=== PATIENT | male | born 1955 | race Caucasian/White ===

== ENCOUNTER 2020-03-06 23:45 | Observation (INO) | payer OTHER ==
--- OUTSIDE RECORDS SUMMARY | 2020-03-06 23:47 | XMS REPORT | Continuity of Care Document ---
:1955 Author Organization [facility] t Address [address] [place] [address] [address]. [address] [place] [address] Care Team Providers Name Role Phone Unavailable Unavailable Unavailable Problems This patient has no known problems. Allergies, Adverse Reactions, Alerts This patient has no known allergies or adverse reactions. Medications This patient has no known medications. Procedures This patient has no known procedures. Encounters Start End Encounter Admission Attending Care Care Encounter Source Date/Time Date/Time Type Type Clinicians Facility Department ID 2019-05-20 2019-05-20 Outpatient [facility] CAR [facility] [facility] 12:20:00 12:20:00 2019-05-09 2019-05-09 Emergency E [facility] [id number] [facility] 16:52:00 16:52:00 Results This patient has no known results.
[2020-03-07 00:37] LABS: Protime INR 0.93
[2020-03-07 00:38] LABS: Absolute Lymphocytes (CBC) 2.2 K/uL (0.7-4.9); Basophils % 0.6 % (0-1.3); Hematocrit 40.8 % (39.6-49.0); Lymphocytes % 31.9 % (15.3-44.8); MPV 10.3 fL (7.6-11.3); RBC Red Blood Cell Count 4.57 M/uL (4.33-5.43)
[2020-03-07 01:04] LABS: ALT/SGPT 36 U/L (12-78); AST/SGOT 30 U/L (15-37); Albumin 3.7 g/dL (3.4-5.0); Alkaline Phosphatase 49 U/L (45-117); BUN Blood Urea Nitrogen 25 mg/dL (7-18); Bicarbonate 27 mmol/L (21-32); Bilirubin Direct < 0.1 mg/dL (0-0.2); Bilirubin Total 0.3 mg/dL (0.2-1.0); Glucose Level 132 mg/dL (74-106); Magnesium 2.7 mg/dL (1.8-2.4); NT PRO-BNP 426 pg/mL (<125); Potassium 3.3 mmol/L (3.5-5.1); Sodium Level 143 mmol/L (136-145); Troponin (Emerg Dept Use Only) 0.02 ng/mL (0.0-0.045)
--- NOTE | 2020-03-07 01:57 | ER ---
Nurse's Notes [facility] Name: Shon Recinos Jr Age: 65 yrs Sex: Male : 1955 Arrival Date: 03/06/2020 Time: 23:46 Bed 8 Private MD: Diagnosis: Syncope and collapse Presentation: 03/06 23:49 Chief complaint: EMS states: Pt felt some indigestion went to walk it off, had a wh syncopal episode, fell and hit the night stand. Pt unsure if he lost consciousness states he was aware of everything was just disoriented after that for a short time. Pt denies using blood thinners. Coronavirus screen: Client denies travel out of the [place] in the last 14 days. At this time, the client does not indicate any symptoms associated with coronavirus-19. Ebola Screen: Patient negative for fever greater than or equal to 101.5 degrees Fahrenheit, and additional compatible Ebola Virus Disease symptoms Patient denies exposure to infectious person. Initial Sepsis Screen: Does the patient meet any 2 criteria? No. Patient's initial sepsis screen is negative. Does the patient have a suspected source of infection? No. Patient's initial sepsis screen is negative. Risk Assessment: Do you want to hurt yourself or someone else? Patient reports no desire to harm self or others. Onset of symptoms was March 06, 2020. Care prior to arrival: IV initiated. 18 GA, in the left antecubital area, Glucose check: 139. 23:49 Method Of Arrival: EMS: [facility] 23:49 Acuity: SUSEI 3 Historical: - Allergies: 23:55 No Known Allergies; - Home Meds: 03/07 00:06 olmesartan oral oral 1 tab once daily [Active]; Flomax 0.4 mg Oral cp24 1 cap once wh daily [Active]; isosorbide mononitrate 30 mg Oral Tb24 1 tab twice a day [Active]; prednisone 5 mg Oral tab 1 tab 2 times per day [Active]; abiraterone oral oral 4 tabs once daily [Active]; rosuvastatin 20 mg oral tab 1 tab once daily [Active]; Dexilant 30 mg oral CpDB 1 cap once daily [Active]; Trelstar Injection [Active]; Zometa Infusion [Active]; - PMHx: 03/06 23:55 Hypertension; [place]; Prostate Ca; 03/07 00:06 GERD; - PSHx: 03/06 23:55 Bypass; - Immunization history:: Adult Immunizations not up to date. - Social history:: Smoking status: Patient/guardian denies using. Screenin:56 Abuse screen: Denies threats or abuse. Denies injuries from another. Nutritional screening: No deficits noted. Tuberculosis screening: No symptoms or risk factors identified. Fall Risk Fall in past 12 months (25 points). Assessment: 23:59 General: Appears in no apparent distress. Behavior is calm, cooperative, appropriate for age. Pain: Denies pain. Neuro: Level of Consciousness is awake, alert, obeys commands, Oriented to person, place, time, situation, Appropriate for age Fluorescent Lighting Model Maker are equal bilaterally Moves all extremities. Gait is steady, Speech is normal, Facial symmetry appears normal, Pupils are PERRLA, Intact Reports a syncopal episode. Cardiovascular: Heart tones S1 S2 Rhythm is sinus rhythm with unifocal PVCs. Respiratory: Airway is patent Respiratory effort is even, unlabored, Respiratory pattern is regular, symmetrical, Breath sounds are clear bilaterally. GI: Abdomen is flat, non-distended. : No signs and/or symptoms were reported regarding the genitourinary system. EENT: No signs and/or symptoms were reported regarding the EENT system. Derm: Bruising that is left side of face. Musculoskeletal: Circulation, motion, and sensation intact. 03/07 01:00 Reassessment: Patient appears in no apparent distress at this time. No changes from previously documented assessment. Patient and/or family updated on plan of care and expected duration. Pain level reassessed. Patient is alert, oriented x 3, equal unlabored respirations, skin warm/dry/pink. 02:00 Reassessment: Patient appears in no apparent distress at this time. Patient and/or family updated on plan of care and expected duration. Pain level reassessed. Patient is alert, oriented x 3, equal unlabored respirations, skin warm/dry/pink. Provider at bedside explaining POC need for admit. Vital Signs: 03/06 23:49 BP 168 / 89; Pulse 79; Resp 18; Temp 98.2; Pulse Ox 97% ; Weight 111.58 kg; Height 6 wh ft. 0 in. (182.88 cm); 03/07 02:15 BP 164 / 85 Supine; Pulse 73; oe 02:17 BP 168 / 84 Sitting; Pulse 73; oe 02:25 BP 158 / 93 Standing; Pulse 70; oe 03/06 23:49 Body Mass Index 33.36 (111.58 kg, 182.88 cm) NIH Stroke Scale Scores: 03/06 23:49 NIHSS Score: 0 ED Course: 23:46 Patient arrived in ED. cl3 23:49 Rayne Dale is Primary Nurse. 23:52 Triage completed. 03/07 00:00 Arm band placed on right wrist. 00:00 Patient has correct armband on for positive identification. Placed in gown. Bed in low wh position. Call light in reach. Side rails up X 1. pricing consultant on. Pulse ox on. NIBP on. 00:06 Ladarius Newell NP is PHCP. pm1 00:06 Carlos Rodriguez MD is Attending Physician. pm1 00:10 Maintain EMS IV. Dressing intact. Good blood return noted. Site clean \T\ dry. Gauge \T\ wh site: 18g LAC . 00:32 XRAY Chest (1 view) In Process Unspecified. EDMS 00:32 CT Head Brain wo Cont In Process Unspecified. EDMS 01:57 Zoran Olivera is Hospitalizing Provider. tw4 02:50 No provider procedures requiring assistance completed. Patient admitted, IV remains in place. Administered Medications: 01:57 Drug: Tetanus-Diphtheria Toxoid Adult 0.5 ml {Manager Requirements: [employer]. Exp: 07/16/2021. Lot #: [id number]. } Route: IM; Site: right deltoid; 02:49 Follow up: Response: No adverse reaction Point of Care Testing: Blood Glucose: 00:00 Blood Glucose: 128 mg/dL; Ranges: Outcome: 01:57 Decision to Hospitalize by Provider. tw4 02:51 Admitted to Med/surg accompanied by tech, family with patient, via wheelchair, room wh 216, with chart, Report called to Yevgeniy Duuqe RN 02:51 Condition: stable 02:51 Instructed on the need for admit. 03:00 Patient left the ED. rv NIH Stroke Scale - NIH Stroke Score Date: 03/06/2020 Time: 23:49 Total Score = 0 1a. Level of Consciousness (LOC) - 0(Alert) 1b. Level of Consciousness (LOC) (Year \T\ Age) - 0(Both) 1c. LOC Commands (Open \T\ Closes Eyes/Copper Etcher) - 0(Both) 2. Best Gaze (Lateral Gaze Paresis) - 0(Normal) 3. Visual Field Loss - 0(No visual loss) 4. Facial Palsy - 0(Normal) 5a. Left Arm: Motor (10-second hold) - 0(No drift) 5b. Right Arm: Motor (10-second hold) - 0(No drift) 6a. Left Leg: Motor (5-second hold - always test supine) - 0(No drift) 6b. Right Leg: Motor (5-second hold - always test supine) - 0(No drift) 7. Limb Ataxia (finger/nose \T\ heel/cheatham - test with eyes open) - 0(Absent) 8. Sensory Loss (pinprick arms/legs/face) - 0(Normal) 9. Best Language: Aphasia (description/naming/reading) - 0(No aphasia) 10. Dysarthria (speech clarity - read or repeat words) - 0(Normal) 11. Extinction and Inattention (visual/tactile/auditory/spatial/personal) - 0(No abnormality) Initials: Signatures: Dispatcher [employer] EDMS Ladarius Newell, GARNETTER GARNETTER pm1 Fito Haney Winsy Carlos Rodriguez MD MD tw4 John Jules RN RN Tutu Sheehan cl3 Corrections: (The following items were deleted from the chart) 03/06 23:58 23:58 General: Appears [facility] 03/07 00:07 03/06 23:59 Cardiovascular: Heart tones S1 S2 Rhythm is sinus rhythm [facility] 03/07 00:14 03/06 23:59 Neuro: Level of Consciousness is awake, alert, obeys commands, wh Oriented to person, place, time, situation, Appropriate for age Fluorescent Lighting Model Maker are equal bilaterally Moves all extremities. Speech is normal, Facial symmetry appears normal, Pupils are PERRLA, Intact Reports a syncopal episode
--- NOTE | 2020-03-07 01:58 | EDPHYS ---
Physician Documentation [facility] Name: Shon Recinos Jr Age: 65 yrs Sex: Male : 1955 Arrival Date: 03/06/2020 Time: 23:46 Bed 8 Private MD: ED Physician Carlos Rodriguez HPI: 03/07 00:13 This 65 yrs old Male presents to ER via EMS with complaints of Syncope. tw4 00:13 The patient has experienced syncope, became unresponsive, collapsed. Onset: The tw4 symptoms/episode began/occurred just prior to arrival, today. Duration: This was a single episode. Associated injury: The patient did not suffer any apparent associated injury. The patient has not experienced similar symptoms in the past. Historical: - Allergies: 03/06 23:55 No Known Allergies; - Home Meds: 03/07 00:06 olmesartan oral oral 1 tab once daily [Active]; Flomax 0.4 mg Oral cp24 1 cap once wh daily [Active]; isosorbide mononitrate 30 mg Oral Tb24 1 tab twice a day [Active]; prednisone 5 mg Oral tab 1 tab 2 times per day [Active]; abiraterone oral oral 4 tabs once daily [Active]; rosuvastatin 20 mg oral tab 1 tab once daily [Active]; Dexilant 30 mg oral CpDB 1 cap once daily [Active]; Trelstar Injection [Active]; Zometa Infusion [Active]; - PMHx: 03/06 23:55 Hypertension; [place]; Prostate Ca; 03/07 00:06 GERD; - PSHx: 03/06 23:55 Bypass; - Immunization history:: Adult Immunizations not up to date. - Social history:: Smoking status: Patient/guardian denies using. ROS: 03/07 00:13 Constitutional: Negative for fever, chills, and weight loss, Cardiovascular: Negative tw4 for chest pain, palpitations, and edema, Respiratory: Negative for shortness of breath, cough, wheezing, and pleuritic chest pain, Abdomen/GI: Negative for abdominal pain, nausea, vomiting, diarrhea, and constipation, Back: Negative for injury and pain, MS/Extremity: Negative for injury and deformity, Skin: Negative for injury, rash, and discoloration. Neuro: Positive for syncope. Exam: 00:13 Constitutional: This is a well developed, well nourished patient who is awake, alert, tw4 and in no acute distress. Chest/axilla: Normal chest wall appearance and motion. Nontender with no deformity. No lesions are appreciated. Cardiovascular: Regular rate and rhythm with a normal S1 and S2. No gallops, murmurs, or rubs. Normal PMI, no JVD. No pulse deficits. Respiratory: Lungs have equal breath sounds bilaterally, clear to auscultation and percussion. No rales, rhonchi or wheezes noted. No increased work of breathing, no retractions or nasal flaring. Abdomen/GI: Soft, non-tender, with normal bowel sounds. No distension or tympany. No guarding or rebound. No evidence of tenderness throughout. Back: No spinal tenderness. No costovertebral tenderness. Full range of motion. MS/ Extremity: Pulses equal, no cyanosis. Neurovascular intact. Full, normal range of motion. 00:13 Neuro: Awake and alert, GCS 15, oriented to person, place, time, and situation. Cranial nerves II-XII grossly intact. Motor strength 5/5 in all extremities. Sensory grossly intact. Cerebellar exam normal. Normal gait. 00:13 Head/face: Noted is contusion, that is deep, of the forehead and left ear. Vital Signs: 03/06 23:49 BP 168 / 89; Pulse 79; Resp 18; Temp 98.2; Pulse Ox 97% ; Weight 111.58 kg; Height 6 wh ft. 0 in. (182.88 cm); 03/07 02:15 BP 164 / 85 Supine; Pulse 73; oe 02:17 BP 168 / 84 Sitting; Pulse 73; oe 02:25 BP 158 / 93 Standing; Pulse 70; oe 03/06 23:49 Body Mass Index 33.36 (111.58 kg, 182.88 cm) NIH Stroke Scale Scores: 03/06 23:49 NIHSS Score: 0 MDM: 03/07 00:11 Patient medically screened. tw4 03:45 Differential Diagnosis: GI bleed, pseudo seizure, seizure, sepsis. Differential tw4 Diagnosis: aortic aneurysm, cardiac arrhythmia, cerebrovascular accident, emotional response, idiopathic syncope, vasovagal episode. Data reviewed: vital signs, nurses notes. Data reviewed: lab test result(s), CBC, electrolytes, hepatic panel, radiologic studies, CT scan. Data interpreted: Pulse oximetry:. Data interpreted: Pulse oximetry: Interpretation: normal. Test interpretation: by ED physician or midlevel provider: ECG, plain radiologic studies. Counseling: I had a detailed discussion with the patient and/or guardian regarding: the historical points, exam findings, and any diagnostic results supporting the discharge/admit diagnosis, the presence of at least one elevated blood pressure reading (>120/80) during this emergency department visit. Physician consultation: Zoran Olivera regarding admission, to the telemetry unit. patient's condition, and will see patient in inpatient room. Special discussion:. 03/07 00:03 Order name: Glucose, Ancillary Testing; Complete Time: 00:48 EDMS 03/07 00:05 Order name: Glucose, Ancillary Testing EDUT 03/07 00:07 Order name: Basic Metabolic Panel; Complete Time: 01:12 pm1 03/07 00:07 Order name: CBC with Diff; Complete Time: 00:48 pm1 03/07 00:07 Order name: LFT's; Complete Time: 01:32 pm1 03/07 00:07 Order name: Magnesium; Complete Time: 01:12 pm1 03/07 00:07 Order name: NT PRO-BNP; Complete Time: 01:12 pm1 03/07 00:07 Order name: PT-INR; Complete Time: 00:48 pm1 03/07 00:07 Order name: Troponin (emerg Dept Use Only); Complete Time: 01:32 pm1 03/07 00:07 Order name: XRAY Chest (1 view) pm1 03/07 00:12 Order name: CT Head Brain wo Cont tw4 03/07 02:33 Order name: COVID-19 wh 03/07 02:56 Order name: CORONAVIRUS EDUT 03/07 00:07 Order name: EKG; Complete Time: 00:08 pm1 03/07 00:07 Order name: Cardiac monitoring; Complete Time: 00:08 pm1 03/07 00:07 Order name: EKG - Nurse/Tech; Complete Time: 00:08 pm1 03/07 00:07 Order name: IV Saline Lock; Complete Time: 00:08 pm1 03/07 00:07 Order name: Labs collected and sent; Complete Time: 00:08 pm1 03/07 00:07 Order name: O2 Per Protocol; Complete Time: 00:09 pm1 03/07 00:07 Order name: O2 Sat Monitoring; Complete Time: 00:09 pm1 03/07 01:57 Order name: Orthostatics; Complete Time: 02:28 tw4 EC:13 Rate is 69 beats/min. Rhythm is regular with Occasional PVCs. QRS [place] is Normal. SD tw4 interval is normal. QRS interval is normal. QT interval is normal. No Q waves. T waves are Inverted in leads V4, V5, V6. No ST changes noted. Clinical impression: NSR w/ Non-specific ST/T Changes. Interpreted by me. Reviewed by me. Administered Medications: :57 Drug: Tetanus-Diphtheria Toxoid Adult 0.5 ml {Clinical Data Manager: [employer]. Exp: 07/16/2021. Lot #: [id number]. } Route: IM; Site: right deltoid; 02:49 Follow up: Response: No adverse reaction wh Point of Care Testing: Blood Glucose: 00:00 Blood Glucose: 128 mg/dL; Ranges: Critical Glucose Levels:Adult <50 mg/dl or >400 mg/dl <40 mg/dl or >180 mg/dl Disposition: 03/07/20 01:57 Hospitalization ordered by Zoran Olivera for Observation. Preliminary diagnosis is Syncope and collapse. - Bed requested for Telemetry/MedSurg (observation). - Status is Observation. rv - Condition is Stable. - Problem is new. - Symptoms have improved. NIH Stroke Scale - NIH Stroke Score Date: 03/06/2020 Time: 23:49 Total Score = 0 1a. Level of Consciousness (LOC) - 0(Alert) 1b. Level of Consciousness (LOC) (Year \T\ Age) - 0(Both) 1c. LOC Commands (Open \T\ Closes Eyes/Violin Tutor) - 0(Both) 2. Best Gaze (Lateral Gaze Paresis) - 0(Normal) 3. Visual Field Loss - 0(No visual loss) 4. Facial Palsy - 0(Normal) 5a. Left Arm: Motor (10-second hold) - 0(No drift) 5b. Right Arm: Motor (10-second hold) - 0(No drift) 6a. Left Leg: Motor (5-second hold - always test supine) - 0(No drift) 6b. Right Leg: Motor (5-second hold - always test supine) - 0(No drift) 7. Limb Ataxia (finger/nose \T\ heel/cheatham - test with eyes open) - 0(Absent) 8. Sensory Loss (pinprick arms/legs/face) - 0(Normal) 9. Best Language: Aphasia (description/naming/reading) - 0(No aphasia) 10. Dysarthria (speech clarity - read or repeat words) - 0(Normal) 11. Extinction and Inattention (visual/tactile/auditory/spatial/personal) - 0(No abnormality) Initials: Signatures: Dispatcher MedHost EDMS Don Blanco, CORRECTIONAL MAINTENANCE TECHNICIAN-C CORRECTIONAL MAINTENANCE TECHNICIAN-Cla1 Madeline Guajardo, RN RN cg Ladarius Newell, MATTRESS MAKER MATTRESS MAKER pm1 Rayne Dale Terrence, MD MD tw4 John Jules RN RN rv Corrections: (The following items were deleted from the chart) 02:39 01:57 Hospitalization Ordered by Zoran Olivera for Observation. Preliminary cg diagnosis is Syncope and collapse. Bed requested for Telemetry/MedSurg (observation). Status is Observation. Condition is Stable. Problem is new. Symptoms have improved. tw4 03:00 02:39 03/07/2020 01:57 Hospitalization Ordered by Zoran Olivera for rv Observation. Preliminary diagnosis is Syncope and collapse. Bed requested for Telemetry/MedSurg (observation). Status is Observation. Condition is Stable. Problem is new. Symptoms have improved.
[2020-03-07] MEDS ORDERED: TETANUS & DIPHTHERIA TOX,ADULT 0.5 ML VIAL ONE (02:05)
--- NOTE | 2020-03-07 02:40 | P.HP ---
Certification for Inpatient Patient admitted to: Observation With expected LOS: <2 Midnights Patient will require the following post-hospital care: None Practitioner: I am a practitioner with admitting privileges, knowledge of patient current condition, hospital course, and medical plan of care. Services: Services provided to patient in accordance with Admission requirements found in Title 42 Section 412.3 of the Code of Federal Regulations <Don Blanco - Last Filed: 03/07/20 02:32> Patient History Date of Service: 03/07/20 Primary Care Provider: Dr. Stewart Reason for admission: Chest pain/Syncope History of Present Illness: 65 year old male with history of coronary artery disease status post 2 vessel CABG, prostate cancer with mets to bones, hypertension, hyperlipidemia, GERD presents emergency department for syncope. Patient reports that he was lying down in bed and got up to urinate, on his way to he is feeling some Bloating in his abdomen that extended up to his chest. After urinating patient was ambulating back to his bed and began to have a tightness in his chest. Patient describes the tightness in his chest as similar to whenever he had a nuclear stress test. Patient soon after had an episode of syncope and collapse and was down for a number of mins. Patient reports that even after recovering you still having some chest tightness, retrosternal, nonradiating, no associated symptoms, not exacerbated or relieved by anything he can tell. 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 Patient was seen sometime around May of this year for similar symptoms and had angiography without stent placement at that time. Patient also believes that he had stress test but is not certain. Initial troponin negative, EKG without acute findings, chest x-ray negative. Patient did hit his head during his fall, does have some mild abrasions but CT head brain negative for any acute findings. ED provider wishes to admit patient for further evaluation and management. When I saw the patient in the emergency department is awake, alert, oriented x3. Patient in normal sinus rhythm rate 75, blood pressure 150/70, patient reports still some mild substernal chest tightness. Patient will be admitted for further evaluation and management. - Past Medical/Surgical History Diabetic: No -: Prostate cancer with mets to bones on chemotherapy -: CAD status post 2 vessel CABG 2009 -: Hypertension -: Hyperlipidemia -: GERD -: Double Bypass -: Bilateral cataract surgery Psychosocial/ Personal History: Patient lives at home with his - Family History Mother -: Cancer Notes: Pancreatic cancer - Social History Smoking Status: Former smoker Alcohol use: Yes CD- Drugs: No Caffeine use: Yes Place of Residence: Home <Don Blanco - Last Filed: 03/07/20 02:32> Date of Service: 03/07/20 <teddy michel - Last Filed: 03/07/20 17:03> Allergies No Known Allergies Allergy (Verified 03/07/20 03:55) Home Medications: Abiraterone Acetate 4 tab PO DAILY 03/07/20 Clopidogrel Bisulfate [Plavix] 75 mg PO DAILY #30 tablet 03/07/20 Dexlansoprazole [Dexilant] 1 cap PO SEECOM 03/07/20 Isosorbide Dinitrate 1 tab PO DAILY 03/07/20 Nitroglycerin [Nitrostat*] 0.4 mg SL UD PRN #20 tab 03/07/20 Olmesartan Medoxomil 1 tab PO DAILY 03/07/20 Rosuvastatin Calcium 1 tab PO DAILY 03/07/20 predniSONE [Prednisone] 5 mg PO DAILY 03/07/20 Review of Systems Unremarkable Cardiovascular: Chest Pain, Other (Syncope), As per HPI <Don Blanco - Last Filed: 03/07/20 02:32> Physical Examination - Physical Exam General: Alert, In no apparent distress HEENT: Atraumatic, PERRLA, Mucous membr. moist/pink Neck: Supple, 2+ carotid pulse no bruit, No LAD Respiratory: Clear to auscultation bilaterally, Normal air movement Cardiovascular: Regular rate/rhythm, Normal S1 S2 Gastrointestinal: Normal bowel sounds, No tenderness Musculoskeletal: No tenderness Integumentary: No rashes Neurological: Normal speech, Normal strength at 5/5 x4 extr, Normal tone, Normal affect - Studies Laboratory Data (last 24 hrs) 03/07/20 00:05: PT 11.0, INR 0.93 03/07/20 00:05: WBC 7.0, Hgb 13.8, Hct 40.8, Plt Count 156 03/07/20 00:05: Sodium 143, Potassium 3.3 L, BUN 25 H, Creatinine 1.27, Glucose 132 H, Magnesium 2.7 H, Total Bilirubin 0.3, AST 30, ALT 36, Alkaline Phosphatase 49 <Don Blanco - Last Filed: 03/07/20 02:32> - Studies Laboratory Data (last 24 hrs) 03/07/20 00:05: PT 11.0, INR 0.93 03/07/20 00:05: WBC 7.0, Hgb 13.8, Hct 40.8, Plt Count 156 03/07/20 00:05: Sodium 143, Potassium 3.3 L, BUN 25 H, Creatinine 1.27, Glucose 132 H, Magnesium 2.7 H, Total Bilirubin 0.3, AST 30, ALT 36, Alkaline Phosphatase 49 <teddy michel - Last Filed: 03/07/20 17:03> Assessment and Plan - Plan Assessment Chest pain with syncope and collapse-history of CAD with bypass Prostate cancer with mets to bones Hypertension Hyperlipidemia GERD Plan Chest pain with syncope and collapse-history of CAD with 2 vessel bypass: Trend troponins, monitor on telemetry. Cardiology consult in place. Daily aspirin, statin. DVT prophylaxis Lovenox 40 mg subcutaneous once daily. Echocardiogram ordered. Appreciate further input from cardiology. Prostate cancer with mets to bones: Recent PET and bone scan with oncology shows improvement. Appears stable this time, continue with outpatient management. Hypertension: Continue home medications. Adjust as necessary Hyperlipidemia: Continue Crestor GERD: Protonix daily Discharge Plan: Home Plan to discharge in: 24 Hours - Advance Directives Does patient have a Living Will: No Does patient have a Durable POA for Healthcare: No - Code Status/Comfort Care Code Status Assessed: Yes (Full code) Critical Care: No Time Spent Managing Pts Care (In Minutes): 55 <Don Blanco - Last Filed: 03/07/20 02:32> Physician Review: Patient Assessed, Agree with Above Assessment and Plan Physician Review Additional Text: Chest pain. Significant cardiac risk factors. Plan: Continue to trend troponin. Awaiting cardiology input. Echocardiogram. <teddy michel - Last Filed: 03/07/20 17:03>
[2020-03-07] MEDS ORDERED: MORPHINE 2 MG/ML SYR IV PRN (03:11)
[2020-03-07] MEDS ORDERED: NITROGLYCERIN 0.4 MG/TAB SL PRN (03:11)
[2020-03-07] MEDS ORDERED: ONDANSETRON 4 MG/2 ML VIAL IV PRN (03:11)
[2020-03-07] MEDS ORDERED: ACETAMINOPHEN 500 MG TAB PO PRN (03:11)
[2020-03-07] MEDS ORDERED: POTASSIUM 25 MEQ EFFERV TAB PO ONE ×2 (03:42→09:00)
[2020-03-07] MEDS: NA CHLORIDE 0.9% 1,000 ML IV SCH ×2 (03:43→13:11)
[2020-03-07 04:56] VITALS: BMI 33.6
[2020-03-07 06:01] LABS: CKMB Creatine Kinase MB 2.7 ng/mL (0.3-3.6); Thyroid Stimulating Hormone 2.01 uIU/mL (0.360-3.740); Troponin I 0.12 ng/mL (0.0-0.045)
[2020-03-07] MEDS ORDERED: PANTOPRAZOLE 40MG TABLET PO SCH (06:30)
--- NOTE | 2020-03-07 07:50 | RAD REPORT ---
EXAM DESCRIPTION: Chad Single View03/07/2020 12:32 am CLINICAL HISTORY: Hypertension/syncope COMPARISON: 2016 FINDINGS: The lungs appear clear of acute infiltrate. The heart is mildly to moderately enlarged. Postsurgical changes involve the chest Areas of sclerosis are present within the bones compatible with known metastatic disease
[2020-03-07] MEDS ORDERED: POTASSIUM CL SA 10 MEQ TAB PO ONE (08:05)
[2020-03-07 08:21] VITALS: O2SAT 98
[2020-03-07] MEDS ORDERED: ISOSORBIDE MONO 10 MG TAB PO SCH (09:00)
[2020-03-07] MEDS ORDERED: ASPIRIN EC 81 MG TAB PO SCH (09:00)
[2020-03-07] MEDS ORDERED: TAMSULOSIN 0.4 MG SR CAP PO SCH (09:00)
[2020-03-07] MEDS ORDERED: ENOXAPARIN 40 MG/0.4 ML SQ SCH (09:00)
[2020-03-07 09:54] VITALS: TEMP 97
--- NOTE | 2020-03-07 11:21 | P.DS ---
Admission Date: 03/07/20 Discharge Date: 03/07/20 Primary Care Provider: Dr. Stewart Disposition: ROUTINE DISCHARGE Reason for Admission: Chest pain/Syncope Consultations: Cardiology-Dr. Guevara Procedures: None. Brief History of Present Illness: 65-year-old gentleman with a history of coronary artery disease status post CABG, history of prostate cancer with bone metastasis on chemotherapy presented to the emergency department after a syncopal episode at home. Patient reports preceding chest pain prior to the syncopal episode after he used the bathroom in the middle of the night. His initial troponin in the ED was negative. Head CT was negative for acute changes. Patient was hospitalized for further evaluation. Hospital Course: Troponin trended up slightly to 0.12 and then trended down. Troponin trended does not suggest ACS. Patient was asymptomatic during the hospital stay. He mentioned he has been very active and has been walking up to 2 miles without any chest pain. He did several hours of yard work yesterday. Echocardiogram was unremarkable per cardiology. Patient was seen and evaluated by cardiology-Dr. Guevara who recommended event monitor placement as an outpatient. Patient was no orthostatic. Patient deemed clinically stable for discharge per cardiology. Patient is discharged with dual platelet therapy and follow up with Dr. Guevara for arrangement for event monitor placement. Vital Signs/Physical Exam: Temp Pulse Resp BP Pulse Ox 97.0 F 57 17 137/80 97 03/07/20 08:00 03/07/20 08:00 03/07/20 08:00 03/07/20 08:00 03/07/20 08:00 General: Alert, In no apparent distress Neck: Supple, JVD not distended Respiratory: Clear to auscultation bilaterally, Normal air movement Cardiovascular: No edema, Regular rate/rhythm, Normal S1 S2 Integumentary: No rashes Laboratory Data at Discharge: WBC 7.0 K/uL (4.3-10.9) 03/07/20 00:05 Hgb 13.8 g/dL (13.6-17.9) 03/07/20 00:05 Hct 40.8 % (39.6-49.0) 03/07/20 00:05 Plt Count 156 K/uL (152-406) 03/07/20 00:05 PT 11.0 SECONDS (9.5-12.5) 03/07/20 00:05 INR 0.93 03/07/20 00:05 Sodium 143 mmol/L (136-145) 03/07/20 00:05 Potassium 3.9 mmol/L (3.5-5.1) 03/07/20 04:40 BUN 25 mg/dL (7-18) H 03/07/20 00:05 Creatinine 1.27 mg/dL (0.55-1.3) 03/07/20 00:05 Glucose 132 mg/dL (74-106) H 03/07/20 00:05 Magnesium 2.7 mg/dL (1.8-2.4) H 03/07/20 00:05 Total Bilirubin 0.3 mg/dL (0.2-1.0) 03/07/20 00:05 AST 30 U/L (15-37) 03/07/20 00:05 ALT 36 U/L (12-78) 03/07/20 00:05 Alkaline Phosphatase 49 U/L (45-117) 03/07/20 00:05 Troponin I 0.12 ng/mL (0.0-0.045) H 03/07/20 04:40 Triglycerides 64 mg/dL (<150) 03/07/20 04:40 Cholesterol 138 mg/dL (<200) 03/07/20 04:40 HDL Cholesterol 40 mg/dL (40-60) 03/07/20 04:40 Cholesterol/HDL Ratio 3.45 03/07/20 04:40 Home Medications: Abiraterone Acetate 4 tab PO DAILY 03/07/20 Clopidogrel Bisulfate [Plavix] 75 mg PO DAILY #30 tablet 03/07/20 Dexlansoprazole [Dexilant] 1 cap PO SEECOM 03/07/20 Isosorbide Dinitrate 1 tab PO DAILY 03/07/20 Nitroglycerin [Nitrostat*] 0.4 mg SL UD PRN #20 tab 03/07/20 Olmesartan Medoxomil 1 tab PO DAILY 03/07/20 Rosuvastatin Calcium 1 tab PO DAILY 03/07/20 predniSONE [Prednisone] 5 mg PO DAILY 03/07/20 New Medications: Nitroglycerin [Nitrostat*] 0.4 mg SL UD PRN #20 tab PRN Reason: Pain Scale 2-4 (Mild) Clopidogrel Bisulfate [Plavix] 75 mg PO DAILY #30 tablet Diet: AHA Activity: Fall precautions Followup: NONE,NONE [Primary Care Provider] - Hernesto Guevara MD [ACTIVE - CAN ADMIT] - 1-2 Days
[2020-03-07 11:45] LABS: CKMB Creatine Kinase MB 2.1 ng/mL (0.3-3.6); Troponin I 0.06 ng/mL (0.0-0.045)
[2020-03-07 12:57] VITALS: BP 172/81
--- NOTE | 2020-03-07 14:40 | RAD REPORT ---
EXAM DESCRIPTION: CT - Head Brain Wo Cont - 03/07/2020 7:08 am CLINICAL HISTORY: The patient is 65 years old and is Male; SYNCOPE TECHNIQUE: Axial computed tomography images of the head/brain without intravenous contrast. Sagitt al and coronal reformatted images were created and reviewed. This CT exam was performed using one o r more of the following dose reduction techniques: automated exposure control, adjustment of the mA and/or kV according to patient size, and/or use of iterative reconstruction technique. COMPARISON: No relevant prior studies available. FINDINGS: BRAIN: There is diffuse cerebral atrophy present, consistent with this patient's age. The ortega-white matter differentiation is preserved . No hemorrhage. No significant white matter disease . No edema. No extra-axial fluid collections. VENTRICLES: Unremarkable. No ventriculomegaly. BONES/JOINTS: No acute fracture. SOFT TISSUES: Unremarkable. SINUSES: Unremarkable as visualized. No acute sinusitis. MASTOID AIR CELLS: Unremarkable as visualized. No mastoid effusion. ORBITS: Unremarkable as visualized. IMPRESSION: No acute intracranial findings. Electronically signed by: Hyacinth Jon MD 03/07/2020 12:41 AM BALLET PROFESSOR Due to temporary technical issues with the PACS/Fluency reporting system, reports are being signed by the in house radiologists without review as a courtesy to insure prompt reporting. The interpreting radiologist is fully responsible for the content of the report.
--- NOTE | 2020-03-07 16:22 | CON ---
Date of Consultation: 03/07/2020 Reason For Admission: Syncope. History Of Present Illness: Mr. Recinos is a 65-year-old male with history of coronary artery disease status post CABG. The last catheterization was done in May of this year and apparently has an o ccluded graft, patent FINLEY to the LAD. He sees a physician in [place], [place] from a cardiac stand point. He also has a history of hypertension, dyslipidemia, gastroesophageal reflux disease, and hong ign prostatic hypertrophy. While working outside yesterday, he had an episode of sudden syncope. Be fore that, he had some mild chest pain and pressure that he said felt like when he had a stress test in the past. Denies any nausea, vomiting, diaphoresis. He did have some dizziness before this happe ced. He denied PND, orthopnea, pedal edema, or palpitation. Denied any fever or chills or cough. Past Medical History: As stated above. Allergies: NONE. Review of Systems: Negative. Social History: Negative. Family History: Noncontributory. Medications: At home include Dexilant, Imdur, olmesartan, Crestor, Flomax, and prednisone. Physical Examination: Vital Signs: Stable. He is afebrile. HEENT: Negative. Neck: Supple with no bruit. Chest: Clear. Cardiac: Revealed a regular rhythm and rate. No murmurs, gallops, rubs. Abdomen: Benign. Extremities: Revealed no clubbing, cyanosis, or edema. Diagnostic Data: His troponin was 0.12. BNP was 426. His last EKG was unremarkable. Echocardiogra m is within normal limit. Impression And Plan: Syncope, more likely secondary to orthostatic hypotension. I would recommend t he patient continue his olmesartan, Imdur. We will have him to stop the Flomax. His echo is normal. His troponin elevation and BNP elevation are probably secondary to chronic coronary artery disease. I think he should have a 7-day event monitor to rule out ventricular tachycardia or other kind of a rrhythmia that may explain his syncope. I will make arrangements for him to do this as an outpatient as soon as he gets out of the hospital. He will follow up after that with his primary attacher. His other problems including hypertension, dyslipidemia, gastroesophageal reflux disease are stable at this point. The case was discussed with Dr. STACK/SHANNA Voice ID: [id number] Report ID: [id number]
[2020-03-07] MEDS ORDERED: ROSUVASTATIN 10 MG TAB PO SCH (21:00)
--- NOTE | 2020-03-08 07:18 | EKG ---
Test Date: 2020-03-07 Test Time: 00:03:44 Rehabilitation Clerk: RV MEASUREMENT RESULTS: Intervals: Rate: 69 NM: 140 QRSD: 120 QT: 416 QTc: 445 [place]: P: 3 NM: 140 QRS: -26 T: 29 INTERPRETIVE STATEMENTS: Sinus rhythm with occasional premature ventricular complexes Nonspecific intraventricular conduction delay Nonspecific T wave abnormality Abnormal ECG Compared to ECG 01/02/2013 02:03:51 Ventricular premature complex(es) now present T-wave abnormality now present Sinus bradycardia no longer present Electronically Signed On 03-08-20 07:16:17 REDRAWER by Hernesto Guevara
--- NOTE | 2020-03-08 08:11 | ECHO ---
HEIGHT: 6 ft 0 in WEIGHT: 248 lb 1 oz DATE OF STUDY: 03/07/[address]: Don Blanco NP 2-DIMENSIONAL: YES M.MODE: YES DOPPLER: YES COLOR FLOW: YES TDS: PORTABLE: DEFINITY: BUBBLE STUDY: DIAGNOSIS: SYNCOPE CARDIAC HISTORY: CATHERIZATION: YES SURGERY: YES PROSTHETIC VALVE: NO PACEMAKER: NO MEASUREMENTS (cm) DIASTOLIC (NORMALS) SYSTOLIC (NORMALS) IVSd 1.2 (0.6-1.2) LA Diam 3.6 (1.9-4.0) LVEF 57% LVIDd 5.5 (3.5-5.7) LVIDs 3.8 (2.0-3.5) %FS 30% LVPWd 1.2 (0.6-1.2) Ao Diam 3.2 (2.0-3.7) 2 DIMENSIONAL ASSESSMENT: RIGHT ATRIUM: LEFT ATRIUM: RIGHT VENTRICLE: LEFT VENTRICLE: TRICUSPID VALVE: MITRAL VALVE: PULMONIC VALVE: AORTIC VALVE: PERICARDIAL EFFUSION: AORTIC ROOT: LEFT VENTRICULAR WALL MOTION: NORMAL DOPPLER/COLOR FLOW: NORMAL COMMENTS: NORMAL 2-DIMENSIONAL ECHOCARDIOGRAM WITH DOPPLER. NO WALL MOTION ABNORMALITY. NO EFFUSION. TECHNOLOGIST: YULISA COPELAND
--- NOTE | 2020-03-09 07:38 | EKG ---
Test Date: 2020-03-06 Test Time: 23:51:11 Video Control Engineer: RV MEASUREMENT RESULTS: Intervals: Rate: 69 HI: 142 QRSD: 122 QT: 410 QTc: 439 [place]: P: 1 HI: 142 QRS: 71 T: 11 INTERPRETIVE STATEMENTS: Normal sinus rhythm Nonspecific intraventricular conduction delay Borderline ECG Compared to ECG 01/02/2013 02:03:51 Sinus bradycardia no longer present Electronically Signed On 03-09-20 07:32:55 VOCATIONAL REHABILITATION TEACHER by Hernesto Guevara
== END 2020-03-07 15:22 | disposition home or self-care (01) ==
LOC: ER 23:45 → ERHOLD 03-07 02:35 → 2ND 03-07 02:50
PROVIDERS: ADMIT Internal Medicine; ATTEND Internal Medicine
DX: R55 Syncope and collapse (principal); I25.10 Atherosclerotic heart disease of native coronary artery without angina pectoris; Z95.1 Presence of aortocoronary bypass graft; Z20.828 Contact with and (suspected) exposure to other viral communicable diseases; I10 Essential (primary) hypertension; E78.5 Hyperlipidemia, unspecified; K21.9 Gastro-esophageal reflux disease without esophagitis; N40.0 Benign prostatic hyperplasia without lower urinary tract symptoms; Z79.52 Long term (current) use of systemic steroids; R07.9 Chest pain, unspecified; C61 Malignant neoplasm of prostate; C79.51 Secondary malignant neoplasm of bone; Z92.21 Personal history of antineoplastic chemotherapy; Z87.891 Personal history of nicotine dependence; Z23 Encounter for immunization
CPT/HCPCS: 93005 ×2; 93306; 85025; 80048; 36415; 83735; 82550 ×2; 84132; 85610; 80061; 82947; 80076; 84443; 84484 ×3; 82553 ×2; 84439; 83880; 70450; 71045; 90471; 90714; 99285; U0003; J1650; J7030; G0378 ×2